=== PATIENT | female | born 1960 | race Caucasian/White ===

== ENCOUNTER 2021-09-13 14:38 | Emergency (ER) | payer MEDICAID, OTHER ==
[~2021-09-13] VITALS: Ht 165.1 cm; Wt 68.0 kg
[2021-09-13 14:43] VITALS: BP 136/66
== END 2021-09-13 17:07 | disposition left against medical advice (07) ==
LOC: ER 14:38
DX: M25.551 Pain in right hip (principal); M54.50 Low back pain, unspecified; Z53.21 Procedure and treatment not carried out due to patient leaving prior to being seen by health care provider; W01.0XXA Fall on same level from slipping, tripping and stumbling without subsequent striking against object, initial encounter; Y93.89 Activity, other specified; Y92.89 Other specified places as the place of occurrence of the external cause; Y99.8 Other external cause status
CPT/HCPCS: 72131; 73700